=== PATIENT | female | born 1955 | race African-American/Black ===

== ENCOUNTER 2019-12-28 14:33 | Inpatient (IN) | payer MEDICAID ==
[2019-12-28] MEDS ORDERED: DEXTROSE 50%-WATER 25 GM/50 ML DISP.SYRIN IV ONE (14:40)
--- NOTE | 2019-12-28 14:59 | ER Document Report ---
ED General - General Chief Complaint: Low Blood Sugar Stated Complaint: ABNORMAL LABS Time Seen by Provider: 12/28/19 14:54 Notes: 64 year old female presents to the ED complaining of difficulty talking. Patient states she thinks it may be started around 1230 today but she is not certain. Denies any other symptoms, denies chest pain, shortness of breath, difficulty breathing, fevers, chills, weakness, difficulty walking or disorientation. When EMS picked her up she had a blood sugar 42, they did give her dextrose by mouth, blood sugar on arrival was 56. EMS states she has improved since they picked her up. No history of stroke. TRAVEL OUTSIDE OF THE [place] IN LAST 30 DAYS: No - Related Data Allergies/Adverse Reactions: No Known Allergies Allergy (Verified 12/28/19 14:58) Past Medical History - General Information source: Patient, Emergency Med Personnel - Social History Smoking Status: Current Every Day Smoker Chew tobacco use (# tins/day): No Frequency of alcohol use: Social Drug Abuse: None Family History: denies: CAD, CVA - Past Medical History Cardiac Medical History: Reports: Hx Hypercholesterolemia, Hx Hypertension Denies: Hx Coronary Artery Disease, Hx Heart Attack Pulmonary Medical History: Denies: Hx Asthma, Hx Bronchitis, Hx COPD, Hx Pneumonia Neurological Medical History: Denies: Hx Cerebrovascular Accident, Hx Seizures GI Medical History: Reports: Hx Cirrhosis - ETOH ABUSE Musculoskeletal Medical History: Denies Hx Arthritis, Denies Hx Musculoskeletal Trauma Psychiatric Medical History: Denies: Hx Depression Past Surgical History: Denies: Hx Hysterectomy - Immunizations Hx Diphtheria, Pertussis, Tetanus Vaccination: No Review of Systems - Review of Systems Constitutional: No symptoms reported Cardiovascular: No symptoms reported. denies: Chest pain, Syncope, Dizziness Respiratory: No symptoms reported. denies: Cough, Hurts to breathe, Short of breath Neurological/Psychological: See HPI, Speech impairment. denies: Weakness, Gait changes, Loss of power -: Yes All other systems reviewed and negative Physical Exam - Vital signs Vitals: Pulse Resp BP Pulse Ox 64 16 113/86 H 96 12/28/19 14:33 12/28/19 14:33 12/28/19 14:33 12/28/19 14:33 - Notes Notes: GENERAL: Alert, interacts well. No acute distress. HEAD: Normocephalic, atraumatic EYES: Pupils equal, round and reactive to light, extraocular movements intact. ENT: Oral mucosa moist, tongue midline. NECK: Full range of motion, supple, trachea midline. LUNGS: Clear to auscultation bilaterally, no wheezes, rales or rhonchi, no res piratory distress. HEART: Regular rate and rhythm, no murmurs, gallops, rubs. ABDOMEN: Soft, nontender, nondistended, bowel sounds present in all 4 quadrants. EXTREMITIES: Moves all 4 extremities spontaneously, no edema, radial and dorsalis pedis pulses 2/4 bilaterally. No cyanosis. 5 out of 5 muscle strength in all 4 extremities NEUROLOGICAL: Alert and oriented x3, normal speech, cranial nerves II through XII grossly intact, biceps and patellar DTRs 2+ bilaterally. PSYCH: Normal mood, normal affect. SKIN: Warm, Dry, normal turgor, no rashes or lesions noted. Course - Re-evaluation Re-evalutation: 12/28/19 19:58 Patient was hypothermic when she came in, temp Emerson was inserted, jeffrey hugger was started, NH was 0, CT scan of the head was negative for any acute process, blood work shows normal white blood cell count without shift, there is an anion gap acidosis that is likely coming from a lactic acidosis, her pH was quite acidotic at 7.1, potassium somewhat elevated at 5.4, CO2 low at 9, and anion gap elevated at 27, BUN and creatinine both slightly elevated at 26 and 1.49, glucose was initially 56, given an amp of D50 through the IV, glucose has risen to 312 and then to 62, patient is being fed, lactic acid markedly elevated at 13.1, repeated several hours later and it has improved to 6.8, LFTs normal, car diac enzymes negative, urinalysis does not show any signs of infection nor does chest x-ray. EKG does not show STEMI. Patient was covered with cefepime for possible sepsis. Patient's temperature is now actually 100.5. Bear hugger will be removed. Patient is still neurologically intact, denies any abdominal pain or vomiting. No indication for CT scan at this time. Patient was initially discussed with Dr. Victoria who wanted to wait on the acetaminophen and salicylates to result, now these have resulted and they are negative, discussed with Dr. Pang who accepts the patient to the [facility]. - Vital Signs Vital signs: Temp Pulse Resp BP Pulse Ox 91.3 F L 64 16 150/82 H 99 12/28/19 15:00 12/28/19 14:33 12/28/19 18:46 12/28/19 18:45 12/28/19 18:46 - Laboratory Result Diagrams: 12/28/19 14:40 12/28/19 16:08 Laboratory results interpreted by me: 12/28/19 12/28/19 12/28/19 14:35 14:40 14:40 MCHC 31.9 L RDW 15.1 H Lymph % (Auto) 11.8 L Seg Neutrophils % 81.6 H VBG pH VBG HCO3 Potassium Carbon Dioxide Anion Gap BUN Creatinine Est GFR ( Amer) Est GFR (MDRD) Non-Af Glucose POC Glucose 56 L Lactic Acid 13.1 H AST Total Protein Albumin Urine Glucose (UA) Urine Ketones Urine Blood Salicylates Acetaminophen 12/28/19 12/28/19 12/28/19 15:05 15:22 16:08 MCHC RDW Lymph % (Auto) Seg Neutrophils % VBG pH VBG HCO3 Potassium 5.4 H Carbon Dioxide 9 L* Anion Gap 27 H BUN 26 H Creatinine 1.49 H Est GFR ( Amer) 43 L Est GFR (MDRD) Non-Af 35 L Glucose 262 H POC Glucose 312 H Lactic Acid AST 68 H Total Protein 9.0 H Albumin 5.2 H Urine Glucose (UA) 50 H Urine Ketones TRACE H Urine Blood MODERATE H Salicylates Acetaminophen 12/28/19 12/28/19 12/28/19 16:08 17:00 17:43 MCHC RDW Lymph % (Auto) Seg Neutrophils % VBG pH 7.11 L* VBG HCO3 13.0 L Potassium Carbon Dioxide Anion Gap BUN Creatinine Est GFR ( Amer) Est GFR (MDRD) Non-Af Glucose POC Glucose Lactic Acid 6.8 H AST Total Protein Albumin Urine Glucose (UA) Urine Ketones Urine Blood Salicylates < 1.0 L Acetaminophen < 10 L - EKG Interpretation by Me Additional EKG results interpreted by me: 12/28/19 16:09 EKG shows sinus rhythm at a rate of 83, first-degree AV block, normal axis, prolonged QT interval, no ST segment elevations or depressions, irregular baseline, no T wave inversions per my interpretation. Critical Care Note - Critical Care Note Total time excluding time spent on procedures (mins): 55 Discharge - Discharge Clinical Impression: Lactic acid acidosis, High anion gap metabolic acidosis Sepsis Qualifiers: Sepsis type: sepsis due to unspecified organism Sepsis acute organ dysfunction status: with acute organ dysfunction Severe sepsis acute organ dysfunction type: acute renal failure Acute renal failure type: unspecified Severe sepsis shock status: without septic shock Qualified Code(s): A41.9 - Sepsis, unspecified org anism; R65.20 - Severe sepsis without septic shock; N17.9 - Acute kidney failure, unspecified Condition: Stable Disposition: HOME, SELF-CARE Admitting Provider: Poly (Hospitalist) Unit Admitted: [facility]
[2019-12-28 15:09] LABS: ABSOLUTE LYMPHOCYTES (AUTO) 1.1 10^3/uL (0.5-4.7); ABSOLUTE MONOCYTES (AUTO) 0.6 10^3/uL (0.1-1.4); ABSOLUTE NEUT (AUTO) 7.9 10^3/uL (1.7-8.2); BASOPHILS % (AUTO) 0.5 % (0-2); EOSINOPHILS % (AUTO) 0.1 % (0-6); HEMATOCRIT 39.3 % (36.0-47.0); HEMOGLOBIN 12.5 g/dL (12.0-15.5); LYMPHOCYTES % (AUTO) 11.8 % (13-45); MEAN CORPUSCULAR HEMOGLOBIN 30.9 pg (27.0-33.4); MEAN CORPUSCULAR HGB CONC 31.9 g/dL (32.0-36.0); MEAN CORPUSCULAR VOLUME 97 fl (80-97); PLATELET COUNT 272 10^3/uL (150-450); RED BLOOD COUNT 4.05 10^6/uL (3.72-5.28); RED CELL DISTRIBUTION WIDTH 15.1 % (11.5-14.0); SEGMENTED NEUTROPHILS % (AUTO) 81.6 % (42-78); TOTAL CELLS COUNTED % (AUTO) 100 %; WHITE BLOOD COUNT 9.7 10^3/uL (4.0-10.5)
[2019-12-28 15:23] LABS: APPEARANCE,URINE CLEAR; BILIRUBIN,URINE NEGATIVE (NEGATIVE); COLOR,URINE YELLOW; GLUCOSE, URINE 50 mg/dL (NEGATIVE); KETONES,URINE TRACE mg/dL (NEGATIVE); PROTEIN,URINE NEGATIVE (NEGATIVE); URINE SPECIFIC GRAVITY 1.006; UROBILINOGEN,URINE NEGATIVE mg/dL (<2.0)
--- NOTE | 2019-12-28 15:49 | RADIOLOGY REPORT (SQ) ---
EXAM DESCRIPTION: CHEST SINGLE VIEW IMAGES COMPLETED DATE/TIME: 12/28/2019 3:39 pm REASON FOR STUDY: difficulty talking COMPARISON: 12/31/2015 EXAM PARAMETERS: NUMBER OF VIEWS: One view. TECHNIQUE: Single frontal radiographic view of the chest acquired. RADIATION DOSE: NA LIMITATIONS: None. FINDINGS: LUNGS AND PLEURA: No opacities, masses or pneumothorax. No pleural effusion. Stable calci fied right apical granuloma. Unchanged bilateral mid lung scarring. MEDIASTINUM AND HILAR STRUCTURES: Calcified hilar and mediastinal nodes, stable. HEART AND VASCULAR STRUCTURES: Heart normal in size. Vascular calcifications. BONES: No acute findings. HARDWARE: None in the chest. OTHER: No other significant finding. IMPRESSION: No evidence of acute cardiopulmonary process. TECHNICAL DOCUMENTATION: JOB ID: [id number] 2010 [employer]- All Rights Reserved Reading location - IP/workstation name: [email or web address]
--- NOTE | 2019-12-28 16:00 | RADIOLOGY REPORT (SQ) ---
EXAM DESCRIPTION: CT HEAD WITHOUT IMAGES COMPLETED DATE/TIME: 12/28/2019 3:44 pm REASON FOR STUDY: difficulty talking COMPARISON: 04/20/2010 TECHNIQUE: Axial images acquired through the brain without intravenous contrast. Images reviewed wi th bone, brain and subdural windows. Additional sagittal and coronal reconstructions were generated. Images stored on PACS. All CT scanners at this facility use dose modulation, iterative reconstruction, and/or weight based d osing when appropriate to reduce radiation dose to as low as reasonably achievable (ALARA). [facility]: Dose Right [facility]: CareDose [facility]: Dose Right [facility]: Teradose 4D [facility]: [employer] RADIATION DOSE: CT Rad equipment meets quality standard of care and radiation dose reduction techniq ues were employed. CTDIvol: 53.2 mGy. DLP: 1097 mGy-cm. mGy. LIMITATIONS: None. FINDINGS: VENTRICLES: Age-appropriate. CEREBRUM: No masses. No hemorrhage. No midline shift. Mild areas of low density in the white matte r most likely due to chronic micro-vascular ischemic change. No evidence for acute large vascular te rritory infarction. Bilateral basal ganglia mineralization. CEREBELLUM: No masses. No hemorrhage. No alteration of density. No evidence for acute infarction. EXTRAAXIAL SPACES: Mild age-related involutional change. No fluid collections. No masses. ORBITS AND GLOBE: No intra- or extraconal masses. Normal contour of globe without masses. CALVARIUM: No fracture. PARANASAL SINUSES: No fluid or mucosal thickening. SOFT TISSUES: No mass or hematoma. OTHER: No other significant finding. IMPRESSION: No evidence of large vascular territory infarct or intracranial hemorrhage. Mild chronic changes of atrophy and microvascular ischemia. EVIDENCE OF ACUTE STROKE: NO. Pertinent positive or negative findings of the imaging study reported as a CRITICAL EXAM to Dr. Nadia tanner at15:48 on 12/28/2019. Category of Critical Exam: Negative code stroke TECHNICAL DOCUMENTATION: JOB ID: [id number] Quality ID # [id number]: Final reports with documentation of one or more dose reduction techniques (e.g., Au tomated exposure control, adjustment of the mA and/or kV according to patient size, use of iterative reconstruction technique) 2010 [email or web address]- All Rights Reserved Reading location - IP/workstation name: [email or web address]
[2019-12-28 16:29] LABS: PARTIAL THROMBOPLASTIN TIME 25.4 SEC (23.5-35.8)
[2019-12-28 16:31] LABS: INTERNATIONAL RATION (INR) 1.15; PROTHROMBIN TIME 14.8 SEC (11.4-15.4)
[2019-12-28 16:51] LABS: ALBUMIN 5.2 g/dL (3.5-5.0); ALKALINE PHOSPHATASE 115 U/L (38-126); ASPARTATE AMINO TRANSFERASE 68 U/L (14-36); BILIRUBIN,DIRECT 0.3 mg/dL (0.0-0.4); BILIRUBIN,TOTAL 0.5 mg/dL (0.2-1.3); BLOOD UREA NITROGEN 26 mg/dL (7-20); CALCIUM 9.4 mg/dL (8.4-10.2); CREATINE KINASE 106 U/L (30-135); GLUCOSE 262 mg/dL (75-110); POTASSIUM 5.4 mmol/L (3.6-5.0)
[2019-12-28 17:01] LABS: CHLORIDE 107 mmol/L (98-107)
[2019-12-28 17:02] LABS: ANION GAP 27 (5-19)
[2019-12-28 17:03] LABS: CREATINE KINASE MB 2.93 ng/mL (<4.55)
[2019-12-28 17:08] LABS: CARBON DIOXIDE 9 mmol/L (22-30); TROPONIN I < 0.012 ng/mL
[2019-12-28 17:15] LABS: VENOUS BLOOD BASE EXCESS -15.9 mmol/L; VENOUS BLOOD PCO2 41.5 mmHg (35-63)
[2019-12-28] MEDS ORDERED: RINGERS SOLUTION,LACTATED 1,000 ML IV ONE ×2 (17:24→18:07)
[2019-12-28 17:25] LABS: VENOUS BLOOD PH 7.11 (7.30-7.42)
[2019-12-28] MEDS ORDERED: CEFEPIME 2 GM/D5W RTU 2 GM/50 ML RTUPB IV ONE (17:26)
[2019-12-28 18:09] LABS: ACETAMINOPHEN < 10 ug/mL (10-30); SALICYLATE < 1.0 mg/dL (2.0-20.0)
[2019-12-28] MEDS ORDERED: ACETAMINOPHEN 325 MG TABLET PO ONE (20:45)
[2019-12-28] MEDS ORDERED: GLUCAGON,HUMAN RECOMB 1 MG INJ IM PRN (20:49)
[2019-12-28] MEDS ORDERED: DEXTROSE 40% GEL 15 GM TUBE PO PRN ×2 (20:49)
[2019-12-28] MEDS ORDERED: DEXTROSE 50%-WATER 25 GM/50 ML DISP.SYRIN IV PRN ×2 (20:49)
[2019-12-28] MEDS ORDERED: ACETAMINOPHEN 325 MG TABLET PO PRN (20:53)
[2019-12-28] MEDS ORDERED: DIAZEPAM INJ 10 MG/2 ML DISP.SYRIN IV PRN (20:53)
[2019-12-28] MEDS ORDERED: CHLORPROMAZINE HCL INJ 25 MG/1 ML AMPULE IV PRN (20:53)
[2019-12-28] MEDS ORDERED: MAG HYDROX/AL HYDROX/SIMETH SUSP 30 ML UDCUP PO PRN (20:53)
[2019-12-28] MEDS ORDERED: NICOTINE 21 MG/24 HR PATCH.TD24 TD PRN (20:53)
[2019-12-28] MEDS ORDERED: MAGNESIUM HYDROXIDE SUSP 30 ML UDCUP PO PRN (20:53)
[2019-12-28] MEDS ORDERED: ONDANSETRON HCL INJ/PF 4 MG/2 ML SDV IV PRN (20:55)
[2019-12-28] MEDS ORDERED: LEVALBUTEROL HCL NEB 0.63 MG/3 ML AMPUL NEB PRN (20:55)
[2019-12-28] MEDS ORDERED: DEXTROSE 5%-WATER 1000 ML 1,000 ML with SODIUM BICARBONATE 150 MEQ IV PRN ×2 (22:00)
[2019-12-28] MEDS: HEPARIN SOD (PORCINE) 5,000 UNIT/ML 1 ML VIAL SUBCUT SCH (22:17)
[2019-12-28] MEDS: FAMOTIDINE 20 MG TABLET PO SCH (22:18)
[2019-12-28] MEDS: DIAZEPAM 5 MG TABLET PO SCH (22:18)
[2019-12-28 23:36] LABS: VENOUS BLOOD BASE EXCESS -5.6 mmol/L; VENOUS BLOOD HCO3 19.5 mmol/L (20-32); VENOUS BLOOD PCO2 36.6 mmHg (35-63); VENOUS BLOOD PH 7.35 (7.30-7.42)
[2019-12-28 23:57] LABS: ALBUMIN 3.8 g/dL (3.5-5.0); ALKALINE PHOSPHATASE 86 U/L (38-126); ASPARTATE AMINO TRANSFERASE 44 U/L (14-36); BILIRUBIN,DIRECT 0.2 mg/dL (0.0-0.4); BILIRUBIN,TOTAL 0.5 mg/dL (0.2-1.3); BLOOD UREA NITROGEN 28 mg/dL (7-20); CALCIUM 8.6 mg/dL (8.4-10.2); CHLORIDE 106 mmol/L (98-107); GLUCOSE 183 mg/dL (75-110); POTASSIUM 4.9 mmol/L (3.6-5.0); TOTAL PROTEIN 7.1 g/dL (6.3-8.2)
[2019-12-29 00:08] LABS: ANION GAP 13 (5-19)
[2019-12-29 00:11] LABS: CARBON DIOXIDE 18 mmol/L (22-30)
--- NOTE | 2019-12-29 00:15 | PDOC H&P ---
History of Present Illness Admission Date/PCP: 12/28/2019 19:54 No local PCP Patient complains of: Speech difficulty History of Present Illness: LINO MACARIO is a 64 year old female who presented the emergency room with acute difficulty with her speech. She admits that it at about noon today she suddenly began having moderate difficulty with her speech, in that the words she was saying were not what she intended to say. She denies associated or accompanying signs and symptoms. She denies prior similar episodes. She has not identified any aggravating or ameliorating factors for her speech difficulties. Upon EMS arrival they found her to have a blood sugar of 42 which corrected to 56 with oral glucose and then to greater than 300 with IV D50. In the emergency room she was noted to be hypothermic with an initial core temperature of 90.8, acidotic with initial pH of 7.11 (venous), lactic acid was elevated at 13.1, CO2 was 9 and her anion gap was 27. Her temperature corrected rapidly to 100.4 F and her lactic acid improved to 6.8 with IV fluid therapy. Cefepime was given empirically by the ER physician. She was subsequently admitted to the hospital for further evaluation and treatment. Past Medical History Cardiac Medical History: Reports: Hyperlipidema, Hypertension Denies: Coronary Artery Disease, Myocardial Infarction Pulmonary Medical History: Denies: Asthma, Bronchitis, Chronic Obstructive Pulmonary Disease (COPD), Pneumonia EENT Medical History: Denies: Cataracts, Ears - Hearing aids Neurological Medical History: Denies: Hemorrhagic CVA, Ischemic CVA, Seizures Endocrine Medical History: Denies: Diabetes Mellitus Type 1, Diabetes Mellitus Type 2, Hyperthyroidism, Hypothyroidism, Obesity Renal/ Medical History: Denies: Chronic Kidney Disease, Nephrolithiasis Malignancy Medical History: Reports: None GI Medical History: Reports: Cirrhosis - Alcoholic cirrhosis Denies: Crohn's Disease, Hepatitis, Ulcerative Colitis Musculoskeltal Medical History: Reports: Gout Denies: Arthritis Skin Medical History: Denies: Eczema, Psoriasis Psychiatric Medical History: Reports: Alcohol Dependency, Tobacco Dependency Denies: Depression, Substance Abuse Traumatic Medical History: Reports: None Hematology: Denies: Anemia, Bleeding Tendencies Infectious Medical History: Reports: None Past Surgical History Past Surgical History: Reports: None Social History Information Source: Patient Lives with: Friend Smoking Status: Current Every Day Smoker Cigarettes Packs Per Day: 0.2 Electronic Cigarette use?: No Frequency of Alcohol Use: Heavy Amount of Alcoholic Beverages Per Day: 3-4 shots of hard liquor Last Alcohol Use: 12/28/19 Hx Recreational Drug Use: No Drugs: None Hx Prescription Drug Abuse: No - Advance Directive Resuscitation Status: Full Code Surrogate healthcare decision maker:: Abhilash Macario Family History Family History: DM, Hypertension, Malignancy. denies: CAD, CVA Parental Family History Reviewed: Yes Children Family History Reviewed: No Sibling(s) Family History Reviewed.: Yes Medication/Allergy Home Medications: Ascorbic Acid [Vitamin C] 500 mg PO DAILY 05/11/13 Ca Cmb No.1/Vit D3/B-6/FA/B12 [Vitamin D3 1,000 Unit Tablet] 1 tab PO DAILY 05/11/13 Vitamin E [Natural Vitamin E] 400 unit PO DAILY 05/11/13 Thiamine Mononitrate [Vitamin B-1] 1 tab PO DAILY 04/12/15 Atenolol [Tenormin] 50 mg PO BID #120 tablet 01/06/16 Allergies/Adverse Reactions: No Known Allergies Allergy (Verified 12/28/19 14:58) Review of Systems Constitutional: ABSENT: chills, fever(s) Eyes: ABSENT: visual disturbances, other - Eye pain Ears: ABSENT: hearing changes, other - Ear pain Nose, Mouth, and Throat: ABSENT: headache(s), sore throat Cardiovascular: ABSENT: chest pain, palpitations Respiratory: ABSENT: cough, dyspnea Gastrointestinal: ABSENT: abdominal pain, constipation, diarrhea, nausea, vomiting Musculoskeletal: ABSENT: back pain, joint swelling, muscle weakness Integumentary: ABSENT: diaphoresis, pruritus, rash Neurological: PRESENT: as per HPI, abnormal speech. ABSENT: confusion, convulsions, focal weakness, memory loss, syncope Psychiatric: ABSENT: anxiety, depression Endocrine: ABSENT: cold intolerance, heat intolerance Hematologic/Lymphatic: ABSENT: easy bleeding, easy bruising Allergic/Immunologic: ABSENT: seasonal rhinorrhea Physical Exam Vital Signs: Temp Pulse Resp BP Pulse Ox 91.3 F L 64 16 150/82 H 99 12/28/19 15:00 12/28/19 14:33 12/28/19 18:46 12/28/19 18:45 12/28/19 18:46 Intake & Output 12/26/19 12/27/19 12/28/19 23:59 23:59 23:59 Intake Total 1050 Balance 1050 Weight 61.3 kg General appearance: PRESENT: no acute distress, cooperative Head exam: PRESENT: atraumatic, normocephalic Eye exam: PRESENT: conjunctiva pink. ABSENT: conjunctival injection, scleral icterus Ear exam: PRESENT: normal external ear exam. ABSENT: bleeding, drainage Mouth exam: PRESENT: dry mucosa, neck supple Neck exam: ABSENT: thyromegaly, tracheal deviation Respiratory exam: PRESENT: clear to auscultation bill, symmetrical, unlabored Cardiovascular exam: PRESENT: RRR. ABSENT: clicks, gallop, rubs Pulses: PRESENT: normal radial pulses, normal dorsalis pedis pul Vascular exam: PRESENT: normal capillary refill. ABSENT: pallor GI/Abdominal exam: PRESENT: distended - Mild gaseous distention, normal bowel sounds, soft Rectal exam: PRESENT: deferred Extremities exam: ABSENT: joint swelling, pedal edema Musculoskeletal exam: ABSENT: deformity, dislocation Neurological exam: PRESENT: alert, oriented to person, oriented to place, oriented to time, oriented to situation, CN II-XII grossly intact. ABSENT: mo tor sensory deficit Psychiatric exam: PRESENT: appropriate affect, normal mood Skin exam: PRESENT: dry, intact, warm. ABSENT: jaundice, rash, urticaria Results Laboratory Results: 12/28/19 14:40 12/28/19 16:08 12/28/19 12/28/19 12/28/19 14:40 14:40 14:40 WBC 9.7 RBC 4.05 Hgb 12.5 Hct 39.3 MCV 97 MCH 30.9 MCHC 31.9 L RDW 15.1 H Plt Count 272 Seg Neutrophils % 81.6 H VBG pH VBG pCO2 VBG HCO3 VBG Base Excess Sodium Cancelled Potassium Cancelled Chloride Cancelled Carbon Dioxide Cancelled Anion Gap Cancelled BUN Cancelled Creatinine Cancelled Est GFR ( Amer) Cancelled Est GFR (Non-Af Amer) Cancelled Glucose Cancelled Lactic Acid 13.1 H Calcium Cancelled Total Bilirubin Cancelled AST Cancelled Alkaline Phosphatase Cancelled Total Protein Cancelled Albumin Cancelled Urine Color Urine Appearance Urine pH Ur Specific [place] Urine Protein Urine Glucose (UA) Urine Ketones Urine Blood Urine RBC (Auto) 12/28/19 12/28/19 12/28/19 15:05 16:08 16:08 WBC RBC Hgb Hct MCV MCH MCHC RDW Plt Count Seg Neutrophils % VBG pH Cancelled VBG pCO2 Cancelled VBG HCO3 Cancelled VBG Base Excess Cancelled Sodium 143.1 Potassium 5.4 H Chloride 107 Carbon Dioxide 9 L* Anion Gap 27 H BUN 26 H Creatinine 1.49 H Est GFR ( Amer) 43 L Est GFR (Non-Af Amer) Glucose 262 H Lactic Acid Calcium 9.4 Total Bilirubin 0.5 AST 68 H Alkaline Phosphatase 115 Total Protein 9.0 H Albumin 5.2 H Urine Color YELLOW Urine Appearance CLEAR Urine pH 5.0 Ur Specific [place] 1.006 Urine Protein NEGATIVE Urine Glucose (UA) 50 H Urine Ketones TRACE H Urine Blood MODERATE H Urine RBC (Auto) 1 12/28/19 12/28/19 17:00 17:43 WBC RBC Hgb Hct MCV MCH MCHC RDW Plt Count Seg Neutrophils % VBG pH 7.11 L* VBG pCO2 41.5 VBG HCO3 13.0 L VBG Base Excess -15.9 Sodium Potassium Chloride Carbon Dioxide Anion Gap BUN Creatinine Est GFR ( Amer) Est GFR (Non-Af Amer) Glucose Lactic Acid 6.8 H Calcium Total Bilirubin AST Alkaline Phosphatase Total Protein Albumin Urine Color Urine Appearance Urine pH Ur Specific [place] Urine Protein Urine Glucose (UA) Urine Ketones Urine Blood Urine RBC (Auto) 12/28/19 12/28/19 12/28/19 14:40 14:40 16:08 Creatine Kinase Cancelled 106 CK-MB (CK-2) Cancelled Troponin I Cancelled 12/28/19 16:08 Creatine Kinase CK-MB (CK-2) 2.93 Troponin I < 0.012 Impressions: Chest X-Ray 12/28/19 14:54 IMPRESSION: No evidence of acute cardiopulmonary process. Head CT 12/28/19 14:54 IMPRESSION: No evidence of large vascular territory infarct or intracranial hemorrhage. Mild chronic changes of atrophy and microvascular ischemia. EVIDENCE OF ACUTE STROKE: NO. Pertinent positive or negative findings of the imaging study reported as a CRITICAL EXAM to Dr. Bhatia at15:48 on 12/28/2019. Category of Critical Exam: Negative code stroke Assessment and Plan - Diagnosis (1) SIRS (systemic inflammatory response syndrome) Is this a current diagnosis for this admission?: Yes (2) Lactic acid acidosis Is this a current diagnosis for this admission?: Yes (3) Hypothermia Qualifiers: Encounter type: initial encounter Qualified Code(s): T68.XXXA - Hypothermia, initial encounter Is this a current diagnosis for this admission?: Yes (4) Hypoglycemia Is this a current diagnosis for this admission?: Yes (5) Hypertension Qualifiers: Hypertension type: essential hypertension Qualified Code(s): I10 - Essential (primary) hypertension Is this a current diagnosis for this admission?: Yes (6) Hyperlipidemia Qualifiers: Hyperlipidemia type: unspecified Qualified Code(s): E78.5 - Hyperlipidemia, unspecified Is this a current diagnosis for this admission?: Yes (7) Alcoholic cirrhosis of liver without ascites Is this a current diagnosis for this admission?: Yes (8) Tobacco use disorder, severe, dependence Is this a current diagnosis for this admission?: Yes (9) Alcohol use disorder, severe, dependence Is this a current diagnosis for this admission?: Yes - Plan Summary Summary: Patient is admitted to [facility] where she will be receiving routine supportive and symptomatic cares. An MRI of her head will be obtained to evaluate for a possible stroke. She received a bicarbonate infusion over the initial 3 hours of her hospital course. She will receive high-volume IV fluids and her electrolytes will be monitored closely. Serial lactic acid studies will be obtained. Serial venous blood gases will be obtained. Patient's temperature will be monitored closely throughout her hospital course. Patient will use Valium 10 mg IV every hour as needed severe agitation/hallucinations related to alcohol withdrawal. Accu-Cheks will be obtained every 4 hours. Patient will be on a cardiac diet. CBCs, metabolic profiles and magnesium levels will be obtained as appropriate. Smoking cessation is advised and counseled briefly at the bedside. A nicotine replacement patch is available for the patient's use, if desired. - Time Time Spent with patient: 25-34 minutes Smoking Cessation Education: 3 to 10 minutes Medications reviewed and adjusted accordingly: Yes - Inpatient Certification Based on my medical assessment, after consideration of the patient's comorbidities, presenting symptoms, or acuity I expect that the services needed warrant INPATIENT care.: Yes I certify that my determination is in accordance with my understanding of Medicare's requirements for reasonable and necessary INPATIENT services [42 CFR 412.3e].: Yes Medical Necessity: Need Close Monitoring Due to Risk of Patient Decompensation, Need For IV Fluids, Need For Continuous Telemetry Monitoring, Need for Solomon rological Checks, Risk of Complication if Not Cared For in Hospital, Risk of Diagnosis Which Will Require Inpatient Eval/Care/Monitoring
[2019-12-29 02:07] LABS: VENOUS BLOOD BASE EXCESS 1.1 mmol/L; VENOUS BLOOD HCO3 26.2 mmol/L (20-32); VENOUS BLOOD PCO2 43.7 mmHg (35-63); VENOUS BLOOD PH 7.4 (7.30-7.42)
[2019-12-29] MEDS: DIAZEPAM 5 MG TABLET PO SCH ×6 (02:11→21:08)
[2019-12-29] MEDS: RINGERS SOLUTION,LACTATED 1,000 ML IV PRN ×2 (03:17→06:43)
[2019-12-29] MEDS: HEPARIN SOD (PORCINE) 5,000 UNIT/ML 1 ML VIAL SUBCUT SCH ×3 (05:03→21:08)
[2019-12-29 05:40] LABS: VENOUS BLOOD BASE EXCESS 2.5 mmol/L; VENOUS BLOOD HCO3 27.1 mmol/L (20-32); VENOUS BLOOD PCO2 41.9 mmHg (35-63); VENOUS BLOOD PH 7.43 (7.30-7.42)
[2019-12-29 06:07] LABS: CHOLESTEROL 154.08 mg/dL (0-200); TRIGLYCERIDES 114 mg/dL (<150)
[2019-12-29 06:18] LABS: DIRECT LDL 73 mg/dL (<100)
[2019-12-29 06:22] LABS: VLDL CHOLESTEROL 22.8 mg/dL (10-31)
[2019-12-29] MEDS ORDERED: MAGNESIUM SULFATE/D5W 1 GM/100 ML RTUPB IV ONE (06:45)
[2019-12-29 08:12] LABS: ABSOLUTE LYMPHOCYTES (AUTO) 1.7 10^3/uL (0.5-4.7); ABSOLUTE MONOCYTES (AUTO) 0.8 10^3/uL (0.1-1.4); ABSOLUTE NEUT (AUTO) 3.9 10^3/uL (1.7-8.2); BASOPHILS % (AUTO) 0.6 % (0-2); EOSINOPHILS % (AUTO) 0.2 % (0-6); HEMATOCRIT 30.4 % (36.0-47.0); HEMOGLOBIN 10.6 g/dL (12.0-15.5); LYMPHOCYTES % (AUTO) 26.9 % (13-45); MEAN CORPUSCULAR HEMOGLOBIN 32.7 pg (27.0-33.4); MEAN CORPUSCULAR HGB CONC 34.9 g/dL (32.0-36.0); MEAN CORPUSCULAR VOLUME 94 fl (80-97); MONOCYTES % (AUTO) 12.4 % (3-13); PLATELET COUNT 186 10^3/uL (150-450); RED BLOOD COUNT 3.25 10^6/uL (3.72-5.28); RED CELL DISTRIBUTION WIDTH 14.2 % (11.5-14.0); SEGMENTED NEUTROPHILS % (AUTO) 59.9 % (42-78); TOTAL CELLS COUNTED % (AUTO) 100 %; WHITE BLOOD COUNT 6.4 10^3/uL (4.0-10.5)
[2019-12-29 08:20] LABS: ANION GAP 8 (5-19); BLOOD UREA NITROGEN 27 mg/dL (7-20); CALCIUM 8.4 mg/dL (8.4-10.2); CARBON DIOXIDE 27 mmol/L (22-30); CHLORIDE 102 mmol/L (98-107); GLUCOSE 99 mg/dL (75-110); POTASSIUM 4.1 mmol/L (3.6-5.0)
[2019-12-29] MEDS: MAGNESIUM SULFATE/D5W 1 GM/100 ML RTUPB IV SCH ×2 (08:52→11:25)
--- NOTE | 2019-12-29 09:37 | EKG REPORT ---
SEVERITY:- ABNORMAL ECG - SINUS RHYTHM VENTRICULAR PREMATURE COMPLEX PROLONGED QT INTERVAL : Confirmed by: Rima Rosario 29-Dec-2019 09:36:27
[2019-12-29] MEDS: DOCUSATE SODIUM 100 MG CAPSULE PO SCH ×2 (09:48→17:01)
[2019-12-29] MEDS: FAMOTIDINE 20 MG TABLET PO SCH ×2 (09:48→21:08)
--- NOTE | 2019-12-29 11:32 | RADIOLOGY REPORT (SQ) ---
EXAM DESCRIPTION: MRI HEAD WITHOUT IMAGES COMPLETED DATE/TIME: 12/29/2019 10:38 am REASON FOR STUDY: Expressive aphasia COMPARISON: CT brain 12/28/2019, 04/20/2010 TECHNIQUE: Multiplanar imaging includes non-contrasted T1, T2, FLAIR, and diffusion with ADC map seq uences. Images stored on PACS. LIMITATIONS: None. FINDINGS: ANATOMY: No anomalies. Normal vascular flow voids. Pituitary fossa normal. CSF SPACES: Normal in size and contour. No hemorrhage. CEREBRUM: Diffusion-weighted images are negative for acute ischemic change. FLAIR and T2 weighted images show a moderate burden of white matter disease in the biparietal region and mid you, with spotty white matter disease elsewhere in the hemispheres. This is stable compared to 2009. POSTERIOR FOSSA: No signal alteration. No hemorrhage. No edema, masses or mass effect. Internal rafael tory canals, cerebello-pontine angles, mastoids normal. DIFFUSION IMAGING: Negative for acute or sub-acute infarction. ORBITS: No masses. Globes normal. PARANASAL SINUSES: No fluid levels. Mucosa normal. OTHER: No other significant finding. IMPRESSION: Chronic white matter disease. No acute findings EVIDENCE OF ACUTE STROKE: NO. TECHNICAL DOCUMENTATION: JOB ID: [id number] 2010 [employer]- All Rights Reserved Reading location - IP/workstation name: [email or web address]
--- NOTE | 2019-12-29 13:12 | PDOC PROGRESS REPORT ---
Subjective Progress Note for:: 12/29/19 Reason For Visit: SIRS 12/29/2019 Admitted for altered mental status, cirrhosis of the liver, alcohol abuse, mental status, lactic acid acidosis, hypothermia, hypoglycemia, hypertension. Patient is a known heavy drinker Physical Exam Vital Signs: Temp Pulse Resp BP Pulse Ox 98.1 F 75 13 141/73 H 98 12/29/19 11:21 12/29/19 11:21 12/29/19 11:21 12/29/19 11:21 12/29/19 11:21 Intake & Output 12/28/19 12/29/19 12/30/19 06:59 06:59 06:59 Intake Total 4290 1100 Output Total 3000 Balance 1290 1100 Weight 63.5 kg General appearance: PRESENT: no acute distress Respiratory exam: PRESENT: clear to auscultation bill. ABSENT: rales, rhonchi, wheezes Cardiovascular exam: PRESENT: RRR. ABSENT: diastolic murmur, rubs, systolic murmur Neurological exam: PRESENT: alert, awake, oriented to person, oriented to place, oriented to time, oriented to situation, CN II-XII grossly intact, other - No focal deficits at all, no speech deficit. ABSENT: motor sensory deficit Psychiatric exam: PRESENT: appropriate affect, normal mood. ABSENT: homicidal ideation, suicidal ideation Results Laboratory Results: 12/29/19 05:27 12/29/19 05:27 12/28/19 12/28/19 12/28/19 14:40 14:40 14:40 WBC 9.7 RBC 4.05 Hgb 12.5 Hct 39.3 MCV 97 MCH 30.9 MCHC 31.9 L RDW 15.1 H Plt Count 272 Seg Neutrophils % 81.6 H VBG pH VBG pCO2 VBG HCO3 VBG Base Excess Sodium Cancelled Potassium Cancelled Chloride Cancelled Carbon Dioxide Cancelled Anion Gap Cancelled BUN Cancelled Creatinine Cancelled Est GFR ( Amer) Cancelled Est GFR (Non-Af Amer) Cancelled Glucose Cancelled Lactic Acid 13.1 H Calcium Cancelled Magnesium Total Bilirubin Cancelled AST Cancelled Alkaline Phosphatase Cancelled Total Protein Cancelled Albumin Cancelled Triglycerides Cholesterol LDL Cholesterol Direct VLDL Cholesterol HDL Cholesterol TSH Free T3 pg/mL Urine Color Urine Appearance Urine pH Ur Specific [place] Urine Protein Urine Glucose (UA) Urine Ketones Urine Blood Urine RBC (Auto) 12/28/19 12/28/19 12/28/19 15:05 16:08 16:08 WBC RBC Hgb Hct MCV MCH MCHC RDW Plt Count Seg Neutrophils % VBG pH Cancelled VBG pCO2 Cancelled VBG HCO3 Cancelled VBG Base Excess Cancelled Sodium 143.1 Potassium 5.4 H Chloride 107 Carbon Dioxide 9 L* Anion Gap 27 H BUN 26 H Creatinine 1.49 H Est GFR ( Amer) 43 L Est GFR (Non-Af Amer) Glucose 262 H Lactic Acid Calcium 9.4 Magnesium Total Bilirubin 0.5 AST 68 H Alkaline Phosphatase 115 Total Protein 9.0 H Albumin 5.2 H Triglycerides Cholesterol LDL Cholesterol Direct VLDL Cholesterol HDL Cholesterol TSH Free T3 pg/mL Urine Color YELLOW Urine Appearance CLEAR Urine pH 5.0 Ur Specific [place] 1.006 Urine Protein NEGATIVE Urine Glucose (UA) 50 H Urine Ketones TRACE H Urine Blood MODERATE H Urine RBC (Auto) 1 12/28/19 12/28/19 12/28/19 17:00 17:43 20:45 WBC RBC Hgb Hct MCV MCH MCHC RDW Plt Count Seg Neutrophils % VBG pH 7.11 L* VBG pCO2 41.5 VBG HCO3 13.0 L VBG Base Excess -15.9 Sodium Potassium Chloride Carbon Dioxide Anion Gap BUN Creatinine Est GFR ( Amer) Est GFR (Non-Af Amer) Glucose Lactic Acid 6.8 H 5.8 H Calcium Magnesium Total Bilirubin AST Alkaline Phosphatase Total Protein Albumin Triglycerides Cholesterol LDL Cholesterol Direct VLDL Cholesterol HDL Cholesterol TSH Free T3 pg/mL Urine Color Urine Appearance Urine pH Ur Specific [place] Urine Protein Urine Glucose (UA) Urine Ketones Urine Blood Urine RBC (Auto) 12/28/19 12/28/19 12/28/19 23:28 23:28 23:28 WBC RBC Hgb Hct MCV MCH MCHC RDW Plt Count Seg Neutrophils % VBG pH VBG pCO2 VBG HCO3 VBG Base Excess Sodium 136.8 L Potassium 4.9 Chloride 106 Carbon Dioxide 18 L Anion Gap 13 BUN 28 H Creatinine 1.18 Est GFR ( Amer) 56 L Est GFR (Non-Af Amer) Glucose 183 H Lactic Acid 3.9 H Calcium 8.6 Magnesium Total Bilirubin 0.5 AST 44 H Alkaline Phosphatase 86 Total Protein 7.1 Albumin 3.8 Triglycerides Cholesterol LDL Cholesterol Direct VLDL Cholesterol HDL Cholesterol TSH Free T3 pg/mL 2.42 L Urine Color Urine Appearance Urine pH Ur Specific [place] Urine Protein Urine Glucose (UA) Urine Ketones Urine Blood Urine RBC (Auto) 12/28/19 12/29/19 12/29/19 23:28 02:00 02:00 WBC RBC Hgb Hct MCV MCH MCHC RDW Plt Count Seg Neutrophils % VBG pH 7.35 7.40 VBG pCO2 36.6 43.7 VBG HCO3 19.5 L 26.2 VBG Base Excess -5.6 1.1 Sodium Potassium Chloride Carbon Dioxide Anion Gap BUN Creatinine Est GFR ( Amer) Est GFR (Non-Af Amer) Glucose Lactic Acid 2.7 H Calcium Magnesium Total Bilirubin AST Alkaline Phosphatase Total Protein Albumin Triglycerides Cholesterol LDL Cholesterol Direct VLDL Cholesterol HDL Cholesterol TSH Free T3 pg/mL Urine Color Urine Appearance Urine pH Ur Specific [place] Urine Protein Urine Glucose (UA) Urine Ketones Urine Blood Urine RBC (Auto) 12/29/19 12/29/19 12/29/19 05:27 05:27 05:27 WBC RBC Hgb Hct MCV MCH MCHC RDW Plt Count Seg Neutrophils % VBG pH VBG pCO2 VBG HCO3 VBG Base Excess Sodium Potassium Chloride Carbon Dioxide Anion Gap BUN Creatinine Est GFR ( Amer) Est GFR (Non-Af Amer) Glucose Lactic Acid 2.4 H Calcium Magnesium 1.2 L* Total Bilirubin AST Alkaline Phosphatase Total Protein Albumin Triglycerides 114 Cholesterol 154.08 LDL Cholesterol Direct 73 VLDL Cholesterol 22.8 HDL Cholesterol 69 TSH 0.64 Free T3 pg/mL Urine Color Urine Appearance Urine pH Ur Specific [place] Urine Protein Urine Glucose (UA) Urine Ketones Urine Blood Urine RBC (Auto) 12/29/19 12/29/19 12/29/19 05:27 05:27 05:27 WBC 6.4 RBC 3.25 L Hgb 10.6 L Hct 30.4 L MCV 94 MCH 32.7 MCHC 34.9 RDW 14.2 H Plt Count 186 Seg Neutrophils % 59.9 VBG pH 7.43 H VBG pCO2 41.9 VBG HCO3 27.1 VBG Base Excess 2.5 Sodium 137.0 Potassium 4.1 Chloride 102 Carbon Dioxide 27 Anion Gap 8 BUN 27 H Creatinine 1.02 Est GFR ( Amer) > 60 Est GFR (Non-Af Amer) Glucose 99 Lactic Acid Calcium 8.4 Magnesium Total Bilirubin AST Alkaline Phosphatase Total Protein Albumin Triglycerides Cholesterol LDL Cholesterol Direct VLDL Cholesterol HDL Cholesterol TSH Free T3 pg/mL Urine Color Urine Appearance Urine pH Ur Specific [place] Urine Protein Urine Glucose (UA) Urine Ketones Urine Blood Urine RBC (Auto) 12/28/19 12/28/19 12/28/19 14:40 14:40 16:08 Creatine Kinase Cancelled 106 CK-MB (CK-2) Cancelled Troponin I Cancelled 12/28/19 16:08 Creatine Kinase CK-MB (CK-2) 2.93 Troponin I < 0.012 Impressions: Chest X-Ray 12/28/19 14:54 IMPRESSION: No evidence of acute cardiopulmonary process. Head CT 12/28/19 14:54 IMPRESSION: No evidence of large vascular territory infarct or intracranial hemorrhage. Mild chronic changes of atrophy and microvascular ischemia. EVIDENCE OF ACUTE STROKE: NO. Pertinent positive or negative findings of the imaging study reported as a CRITICAL EXAM to Dr. Bhatia at15:48 on 12/28/2019. Category of Critical Exam: Negative code stroke Head MRI 12/29/19 00:00 IMPRESSION: Chronic white matter disease. No acute findings EVIDENCE OF ACUTE STROKE: NO. Assessment and Plan - Diagnosis (1) Alcohol use disorder, severe, dependence Is this a current diagnosis for this admission?: Yes (2) Alcoholic cirrhosis of liver without ascites Is this a current diagnosis for this admission?: Yes (3) High anion gap metabolic acidosis Is this a current diagnosis for this admission?: Yes (4) Hypertension Qualifiers: Hypertension type: essential hypertension Qualified Code(s): I10 - Essential (primary) hypertension Is this a current diagnosis for this admission?: Yes (5) Hypoglycemia Is this a current diagnosis for this admission?: Yes (6) Hypothermia Qualifiers: Encounter type: initial encounter Qualified Code(s): T68.XXXA - Hypothermia, initial encounter Is this a current diagnosis for this admission?: Yes (7) Lactic acid acidosis Is this a current diagnosis for this admission?: Yes - Plan Summary Summary: Patient is admitted to [facility] where she will be receiving routine supportive and s ymptomatic cares. An MRI of her head will be obtained to evaluate for a possible stroke. She received a bicarbonate infusion over the initial 3 hours of her hospital course. She will receive high-volume IV fluids and her electrolytes will be monitored closely. Serial lactic acid studies will be obtained. Serial venous blood gases will be obtained. Patient's temperature will be monitored closely throughout her hospital course. Patient will use Valium 10 mg IV every hour as needed severe agitation/hallucinations related to alcohol withdrawal. Accu-Cheks will be obtained every 4 hours. Patient will be on a cardiac diet. CBCs, metabolic profiles and magnesium levels will be obtained as appropriate. Smoking cessation is advised and counseled briefly at the bedside. A nicotine replacement patch is available for the patient's use, if desired. 12/29/2019 Patient was admitted last night through the emergency room for possible expressive aphasia, possible sepsis, abnormal labs, and significant alcohol abuse. Morning upon further questioning the patient tells me that yesterday prior to all this happening she had had several drinks of alcohol, and according to someone who was there she may have "passed out" for some time prior to coming to the emergency room. Patient states she had not had anything to drink for several weeks and was trying to stop drinking but yesterday once again had multiple alcoholic beverages. Patient has been drinking alcohol for many many years.. Was some thought by the hospitalist that the patient was hypothermic and hypotensive from laying exposed uncovered and possibly post inebriation, higher to coming to the ER. Confirms that that may have been a possibility She denies any recent fever chills or respiratory illness This morning her temperature is 98 her pulse is 68 her blood pressure is 141/64 and her oxygen is 98% on room air Morning her pH is 7.43 sodium 136, BUN of 28 creatinine 1.18. Lactic acid levels 2.4 on admission it was reportedly 13.1 but quickly went down to 6.8 and then down to 2.7, with essentially nothing more done than IV fluids Patient's magnesium level is low at 1.2 and she will be given IV riders MRI of the brain shows no acute ischemic changes or CVA Patient is neurologically intact with no focal deficits no expressive or receptive aphasia. Continue the IV cefepime until cultures are back until patient has been stabilized. This IV antibiotic may be discontinued within the next 24 hours Follow-up labs. I do not feel like this is a case of sepsis or CVA. Unfortunately a blood alcohol was not done in ED I have explained all this to the patient and she seemed comfortable and satisfied, is in no distress - Time Time Spent with patient: 35 or more minutes
[2019-12-29] MEDS ORDERED: MAGNESIUM SULFATE 4 GM/100 ML RTUPB IV ONE (14:00)
[2019-12-30] MEDS: DIAZEPAM 5 MG TABLET PO SCH ×5 (01:42→23:21)
[2019-12-30] MEDS: HEPARIN SOD (PORCINE) 5,000 UNIT/ML 1 ML VIAL SUBCUT SCH ×3 (05:28→21:27)
[2019-12-30 07:53] LABS: ANION GAP 8 (5-19); BLOOD UREA NITROGEN 25 mg/dL (7-20); CALCIUM 8.8 mg/dL (8.4-10.2); CARBON DIOXIDE 26 mmol/L (22-30); CHLORIDE 101 mmol/L (98-107); GLUCOSE 120 mg/dL (75-110); POTASSIUM 4.8 mmol/L (3.6-5.0)
[2019-12-30] MEDS: FAMOTIDINE 20 MG TABLET PO SCH ×2 (09:24→21:28)
[2019-12-30] MEDS: FOLIC ACID 1 MG TABLET PO SCH (09:24)
[2019-12-30] MEDS: DOCUSATE SODIUM 100 MG CAPSULE PO SCH ×2 (09:24→17:11)
[2019-12-30] MEDS: THIAMINE HCL 100 MG TABLET PO SCH (09:25)
[2019-12-30] MEDS: NORMAL SALINE 1000 ML 1,000 ML IV PRN ×3 (09:29→23:17)
[2019-12-30] MEDS ORDERED: DIAZEPAM 2 MG TABLET PO PRN (13:16)
[2019-12-30] MEDS ORDERED: HYDRALAZINE HCL INJ/PF 20 MG/1 ML SDV IV PRN (13:19)
--- NOTE | 2019-12-30 13:24 | PDOC PROGRESS REPORT ---
Subjective Progress Note for:: 12/30/19 Subjective:: The patient is a 64-year-old female with a past medical history of hypertension, hyperlipidemia, alcoholic cirrhosis, gout, alcohol and tobacco dependency with continuous use who presented to the emergency department with complaint of expressive aphasia; found to have SIRS with hypothermia; ultimately determined to be caused to environmental exposure following alcohol intoxication. Patient was seen on morning rounds. She was found resting in bed, comfortably, on room air. She denies all complaints at this time. She specifically denies fever, chills, chest pain, palpitations, dyspnea, abdominal pain, nausea vomiting and diarrhea. She reports poor appetite, however, states that this is likely due to hospital food. She has no other questions or concerns at this time. She has noted to have a flat affect with minimal eye contact. No questions or concerns per nursing. Reason For Visit: SIRS Physical Exam Vital Signs: Temp Pulse Resp BP Pulse Ox 97.9 F 75 20 156/92 H 95 12/30/19 11:55 12/30/19 11:55 12/30/19 11:55 12/30/19 11:55 12/30/19 11:55 Intake & Output 12/29/19 12/30/19 12/31/19 06:59 06:59 06:59 Intake Total 4290 2892 Output Total 3000 2100 Balance 1290 792 Weight 63.5 kg 63 kg General appearance: PRESENT: no acute distress, well-developed, well-nourished Head exam: PRESENT: atraumatic, normocephalic Eye exam: PRESENT: conjunctiva pink, EOMI, PERRLA. ABSENT: scleral icterus Mouth exam: PRESENT: moist, tongue midline Respiratory exam: PRESENT: clear to auscultation bill, symmetrical, unlabored. ABSENT: rales, rhonchi, wheezes Cardiovascular exam: PRESENT: RRR, +S1, +S2. ABSENT: diastolic murmur, rubs, systolic murmur Pulses: PRESENT: normal dorsalis pedis pul Vascular exam: PRESENT: normal capillary refill GI/Abdominal exam: PRESENT: normal bowel sounds, soft. ABSENT: distended, guarding, mass, organolmegaly, rebound, tenderness Rectal exam: PRESENT: deferred Extremities exam: PRESENT: full ROM. ABSENT: calf tenderness, clubbing, pedal edema Musculoskeletal exam: PRESENT: ambulatory Neurological exam: PRESENT: alert, awake, oriented to person, oriented to place, oriented to time, oriented to situation, CN II-XII grossly intact. ABSENT: motor sensory deficit Psychiatric exam: PRESENT: flat affect, normal mood. ABSENT: homicidal i deation, suicidal ideation Skin exam: PRESENT: dry, intact, warm. ABSENT: cyanosis, rash Results Laboratory Results: 12/29/19 05:27 12/30/19 04:01 12/29/19 12/30/19 12/30/19 15:00 04:01 04:01 Sodium 134.8 L Potassium 4.8 Chloride 101 Carbon Dioxide 26 Anion Gap 8 BUN 25 H Creatinine 1.39 H Est GFR ( Amer) 46 L Glucose 120 H Calcium 8.8 Magnesium 2.5 H D 2.7 H 12/28/19 12/28/19 12/28/19 14:40 14:40 16:08 Creatine Kinase Cancelled 106 CK-MB (CK-2) Cancelled Troponin I Cancelled 12/28/19 16:08 Creatine Kinase CK-MB (CK-2) 2.93 Troponin I < 0.012 Impressions: Chest X-Ray 12/28/19 14:54 IMPRESSION: No evidence of acute cardiopulmonary process. Head CT 12/28/19 14:54 IMPRESSION: No evidence of large vascular territory infarct or intracranial hemorrhage. Mild chronic changes of atrophy and microvascular ischemia. EVIDENCE OF ACUTE STROKE: NO. Pertinent positive or negative findings of the imaging study reported as a CRITICAL EXAM to Dr. Bhatia at15:48 on 12/28/2019. Category of Critical Exam: Negative code stroke Head MRI 12/29/19 00:00 IMPRESSION: Chronic white matter disease. No acute findings EVIDENCE OF ACUTE STROKE: NO. Assessment and Plan - Diagnosis (1) MARIAH (acute kidney injury) Is this a current diagnosis for this admission?: Yes Plan: Likely multifactorial secondary to alcohol intoxication, antihypertensives, hypoglycemia/hypothermia. Cr minimally elevated to 1.39. Baseline 1.02 We will avoid nephrotoxic medications as able. Continue gentle IV fluids. Encourage p.o. fluid intake. Follow-up chemistry. (2) Alcohol use disorder, severe, dependence Is this a current diagnosis for this admission?: Yes Plan: The patient is admitted to [facility] on continuous cardiac telemetry. She is provided scheduled Valium; will decrease frequency from every 4 to every 6 hours today. Patient has already received IV magnesium replacement. We will start folic acid and thiamine supplementation. Monitor for evidence of withdrawal and provide as needed benzodiazepines as indicated. Discharge planning is consulted; patient would benefit from review of community resources available for alcohol and substance abuse. (3) Alcoholic cirrhosis of liver without ascites Is this a current diagnosis for this admission?: Yes Plan: LFTs are acceptable. No evidence of fulminant failure at this time. Alcohol cessation strongly encouraged. (4) High anion gap metabolic acidosis Is this a current diagnosis for this admission?: Yes Plan: Resolved. Likely secondary to alcohol intoxication with SIRS (r/t acute intoxication w/ environmental exposure). (5) Hypertension Qualifiers: Hypertension type: essential hypertension Qualified Code(s): I10 - Essential (primary) hypertension Is this a current diagnosis for this admission?: Yes Plan: Resume home dose Atenolol. IV hydralazing as needed for blood pressure control. Cardiac diet. (6) Tobacco use disorder, severe, dependence Is this a current diagnosis for this admission?: Yes Plan: Smoking cessation encouraged. Nicotine replacement therapies provided. (7) Hypothermia Qualifiers: Encounter type: initial encounter Qualified Code(s): T68.XXXA - Hypothermia, initial encounter Is this a current diagnosis for this admission?: Yes Plan: Resolved. R/t alcohol intoxication with prolonged environmental exposure. (8) Hypoglycemia Is this a current diagnosis for this admission?: Yes Plan: Resolved. Secondary to hypothermia. (9) SIRS (systemic inflammatory response syndrome) Is this a current diagnosis for this admission?: Yes Plan: Resolved. Patient remains afebrile with nml WBC and no indications of acute infectious process at this time. Blood cultures negative at 24 hrs. Antibiotics have been discontinued. (10) Lactic acid acidosis Is this a current diagnosis for this admission?: Yes Plan: Resolved. - Time Time Spent with patient: 25-34 minutes Medications reviewed and adjusted accordingly: Yes Anticipated discharge: Home Within: within 24 hours - pending improved Creatinine.
[2019-12-30] MEDS ORDERED: (PENDING PHARMACY ID) (Atenolol [Tenormin] 50 MG) PO SCH (18:00)
[2019-12-30] MEDS: ATENOLOL 50 MG TABLET PO SCH (22:46)
[2019-12-31] MEDS ORDERED: DIPHENHYDRAMINE HCL 50 MG/ML VIAL IV PRN (00:51)
[2019-12-31 05:04] LABS: HEMATOCRIT 28.8 % (36.0-47.0); HEMOGLOBIN 9.7 g/dL (12.0-15.5); MEAN CORPUSCULAR HEMOGLOBIN 30.6 pg (27.0-33.4); MEAN CORPUSCULAR HGB CONC 33.8 g/dL (32.0-36.0); MEAN CORPUSCULAR VOLUME 91 fl (80-97); PLATELET COUNT 153 10^3/uL (150-450); RED BLOOD COUNT 3.18 10^6/uL (3.72-5.28); RED CELL DISTRIBUTION WIDTH 14.9 % (11.5-14.0); WHITE BLOOD COUNT 3.9 10^3/uL (4.0-10.5)
[2019-12-31 05:28] LABS: ANION GAP 5 (5-19); BLOOD UREA NITROGEN 21 mg/dL (7-20); CALCIUM 8.4 mg/dL (8.4-10.2); CARBON DIOXIDE 25 mmol/L (22-30); CHLORIDE 107 mmol/L (98-107); GLUCOSE 97 mg/dL (75-110); POTASSIUM 5.5 mmol/L (3.6-5.0)
[2019-12-31] MEDS: DIAZEPAM 5 MG TABLET PO SCH ×2 (06:05→13:08)
[2019-12-31] MEDS: HEPARIN SOD (PORCINE) 5,000 UNIT/ML 1 ML VIAL SUBCUT SCH ×2 (06:05→13:08)
[2019-12-31] MEDS: NORMAL SALINE 1000 ML 1,000 ML IV PRN (06:11)
[2019-12-31] MEDS: FOLIC ACID 1 MG TABLET PO SCH (09:25)
[2019-12-31] MEDS: DOCUSATE SODIUM 100 MG CAPSULE PO SCH (09:25)
[2019-12-31] MEDS: THIAMINE HCL 100 MG TABLET PO SCH (09:25)
[2019-12-31] MEDS: ATENOLOL 50 MG TABLET PO SCH (09:25)
[2019-12-31] MEDS: FAMOTIDINE 20 MG TABLET PO SCH (09:25)
[2019-12-31 12:09] VITALS: BP 154/86
--- NOTE | 2019-12-31 15:58 | PDOC DISCHARGE SUMMARY ---
Impression - Admit/DC Date/PCP Admission Date/Primary Care Provider: 12/28/19 20:42 Discharge Date: 12/31/19 - Discharge Diagnosis (1) Alcohol use disorder, severe, dependence Is this a current diagnosis for this admission?: Yes (2) Alcoholic cirrhosis of liver without ascites Is this a current diagnosis for this admission?: Yes (3) High anion gap metabolic acidosis Is this a current diagnosis for this admission?: Yes (4) Hypertension Is this a current diagnosis for this admission?: Yes (5) Hypoglycemia Is this a current diagnosis for this admission?: Yes (6) Hypothermia Is this a current diagnosis for this admission?: Yes (7) Lactic acid acidosis Is this a current diagnosis for this admission?: Yes - Assessment Summary: Patient was admitted from the emergency room on 12/28/2019 with speech difficulty. Patient states that she had trouble finding the right words to express herself. Patient presented to the emergency room she had a blood sugar of 42 her body initial core temperature was 90.8, her pH was 7.11 her lactic acid was elevated at 13.1, her CO2 was 9 and her anion gap was 27 Her temperature corrected quickly to 100.4 and her lactic acid improved to 6.8 with just IV fluid She also had cefepime started in the ER The following day on 12/29/2019 patient's vital signs revealed a temperature of 98, her pulse was 68, blood pressure 141/64, and her O2 sat was 98% on room air pH was normal 7.43 sodium 136, BUN 28, creatinine 1.18 lactic acid level had improved to 2.4 Magnesium was low at 1.2 and this was corrected with magnesium supplements MRI of the head showed no acute findings On 29 December once again her vital signs were all normal her labs were improving tremendously. He had no speech deficit. On 12/31/2019 the day of discharge her white count was 3.9 hemoglobin 9.7 History 136 sodium potassium 5.5 BUN 21 creatinine 1.05 calcium 8.4 magnesium was 1.8 Culture showed no growth in 72 hours MRI of the brain showed no acute infarct or hemorrhage Patient admits prior to coming to the emergency room she had drank some alcohol and possibly "passed out". May have been exposed to the elements prior to coming to the emergency room which would explain her hypoglycemia, hypothermia, and altered labs Patient does not appear to be septic or toxic her cefepime was discontinued She was told to stop drinking alcohol. She did not want a prescription for NicoDerm patches. Was told to follow-up with her primary care doctor next week. Final diagnosis: 1 hypothermia 2 hypotension 3 kidney injury 4 alcohol abuse 5 alcohol cirrhosis 6 high anion gap, 7 lactic acidosis 8 hypoglycemia - Additional Information Resuscitation Status: Full Code Discharge Diet: As Tolerated Discharge Activity: Activity As Tolerated Referrals: BELLA MILLER FNP-C [NO LOCAL MD] - Home Medications: Ascorbic Acid [Vitamin C] 500 mg PO DAILY 05/11/13 Ca Cmb No.1/Vit D3/B-6/FA/B12 [Vitamin D3 1,000 Unit Tablet] 1 tab PO DAILY 05/11/13 Vitamin E [Natural Vitamin E] 400 unit PO DAILY 05/11/13 Thiamine Mononitrate [Vitamin B-1] 1 tab PO DAILY 04/12/15 Atenolol [Tenormin] 50 mg PO BID #120 tablet 01/06/16 Acetaminophen [Tylenol 325 mg Tablet] 650 mg PO Q4HP PRN tablet 12/31/19 Docusate Sodium [Colace 100 mg Capsule] 100 mg PO BID capsule 12/31/19 Mag Hydrox/Al Hydrox/Simeth [Maalox Plus Susp 30 Udcup] 30 ml PO Q6HP PRN udc 12/31/19 Magnesium Hydroxide [Milk of Magnesia 30 ml Udcup] 30 ml PO HSP PRN udc 12/31/19 History of Present Illiness History of Present Illness: LINO PANIAGUA is a 64 year old female Physical Exam Vital Signs: Temp Pulse Resp BP Pulse Ox 97.2 F 59 L 14 154/86 H 99 12/31/19 11:31 12/31/19 11:31 12/31/19 11:31 12/31/19 11:31 12/31/19 10:31 Intake & Output 12/30/19 12/31/19 01/01/20 06:59 06:59 06:59 Intake Total 2892 4055 485 Output Total 2100 Balance 792 4055 485 Weight 63 kg 63.9 kg Results Laboratory Results: WBC 3.9 10^3/uL (4.0-10.5) L 12/31/19 04:13 RBC 3.18 10^6/uL (3.72-5.28) L 12/31/19 04:13 Hgb 9.7 g/dL (12.0-15.5) L 12/31/19 04:13 Hct 28.8 % (36.0-47.0) L 12/31/19 04:13 MCV 91 fl (80-97) 12/31/19 04:13 MCH 30.6 pg (27.0-33.4) 12/31/19 04:13 MCHC 33.8 g/dL (32.0-36.0) 12/31/19 04:13 RDW 14.9 % (11.5-14.0) H 12/31/19 04:13 Plt Count 153 10^3/uL (150-450) 12/31/19 04:13 Lymph % (Auto) 26.9 % (13-45) 12/29/19 05:27 Douglas % (Auto) 12.4 % (3-13) 12/29/19 05:27 Eos % (Auto) 0.2 % (0-6) 12/29/19 05:27 Baso % (Auto) 0.6 % (0-2) 12/29/19 05:27 Absolute Neuts (auto) 3.9 10^3/uL (1.7-8.2) 12/29/19 05:27 Absolute Lymphs (auto) 1.7 10^3/uL (0.5-4.7) 12/29/19 05:27 Absolute Monos (auto) 0.8 10^3/uL (0.1-1.4) 12/29/19 05:27 Absolute Eos (auto) 0.0 10^3/uL (0.0-0.6) 12/29/19 05:27 Absolute Basos (auto) 0.0 10^3/uL (0.0-0.2) 12/29/19 05:27 Seg Neutrophils % 59.9 % (42-78) 12/29/19 05:27 PT 14.8 SEC (11.4-15.4) 12/28/19 16:08 INR 1.15 12/28/19 16:08 APTT 25.4 SEC (23.5-35.8) 12/28/19 16:08 VBG pH 7.43 (7.30-7.42) H 12/29/19 05:27 VBG pCO2 41.9 mmHg (35-63) 12/29/19 05:27 VBG HCO3 27.1 mmol/L (20-32) 12/29/19 05:27 VBG Base Excess 2.5 mmol/L 12/29/19 05:27 Sodium 136.8 mmol/L (137-145) L 12/31/19 04:13 Potassium 5.5 mmol/L (3.6-5.0) H 12/31/19 04:13 Chloride 107 mmol/L (98-107) 12/31/19 04:13 Carbon Dioxide 25 mmol/L (22-30) 12/31/19 04:13 Anion Gap 5 (5-19) 12/31/19 04:13 BUN 21 mg/dL (7-20) H 12/31/19 04:13 Creatinine 1.05 mg/dL (0.52-1.25) 12/31/19 04:13 Est GFR ( Amer) > 60 (>60) 12/31/19 04:13 Est GFR (Non-Af Amer) Cancelled 12/28/19 14:40 Est GFR (MDRD) Non-Af 53 (>60) L 12/31/19 04:13 Glucose 97 mg/dL (75-110) 12/31/19 04:13 POC Glucose 217 mg/dL (70-110) H 12/29/19 10:01 Lactic Acid 2.4 mmol/L (0.7-2.1) H 12/29/19 05:27 Calcium 8.4 mg/dL (8.4-10.2) 12/31/19 04:13 Magnesium 1.8 mg/dL (1.6-2.3) 12/31/19 04:13 Total Bilirubin 0.5 mg/dL (0.2-1.3) 12/28/19 23:28 Direct Bilirubin 0.2 mg/dL (0.0-0.4) 12/28/19 23:28 Neonat Total Bilirubin Not Reportable 12/28/19 23:28 Neonat Direct Bilirubin Not Reportable 12/28/19 23:28 Neonat Indirect Bili Not Reportable 12/28/19 23:28 AST 44 U/L (14-36) H 12/28/19 23:28 ALT 19 U/L (<35) 12/28/19 23:28 Alkaline Phosphatase 86 U/L (38-126) 12/28/19 23:28 Creatine Kinase 106 U/L (30-135) 12/28/19 16:08 CK-MB (CK-2) 2.93 ng/mL (<4.55) 12/28/19 16:08 Troponin I < 0.012 ng/mL 12/28/19 16:08 Total Protein 7.1 g/dL (6.3-8.2) 12/28/19 23:28 Albumin 3.8 g/dL (3.5-5.0) 12/28/19 23:28 Triglycerides 114 mg/dL (<150) 12/29/19 05:27 Cholesterol 154.08 mg/dL (0-200) 12/29/19 05:27 LDL Cholesterol Direct 73 mg/dL (<100) 12/29/19 05:27 VLDL Cholesterol 22.8 mg/dL (10-31) 12/29/19 05:27 HDL Cholesterol 69 mg/dL (>40) 12/29/19 05:27 EGFR Cancelled 12/28/19 14:40 TSH 0.64 uIU/mL (0.47-4.68) 12/29/19 05:27 Free T3 pg/mL 2.42 pg/mL (2.77-5.27) L 12/28/19 23:28 Urine Color YELLOW 12/28/19 15:05 Urine Appearance CLEAR 12/28/19 15:05 Urine pH 5.0 (5.0-9.0) 12/28/19 15:05 Ur Specific [place] 1.006 12/28/19 15:05 Urine Protein NEGATIVE mg/dL (NEGATIVE) 12/28/19 15:05 Urine Glucose (UA) 50 mg/dL (NEGATIVE) H 12/28/19 15:05 Urine Ketones TRACE mg/dL (NEGATIVE) H 12/28/19 15:05 Urine Blood MODERATE (NEGATIVE) H 12/28/19 15:05 Urine Nitrite (Reflex) NEGATIVE (NEGATIVE) 12/28/19 15:05 Urine Bilirubin NEGATIVE (NEGATIVE) 12/28/19 15:05 Urine Urobilinogen NEGATIVE mg/dL (<2.0) 12/28/19 15:05 Leukocyte Esterase Rfl NEGATIVE (NEGATIVE) 12/28/19 15:05 Urine RBC (Auto) 1 /HPF 12/28/19 15:05 Urine Bacteria (Auto) TRACE /HPF 12/28/19 15:05 Urine WBC (Reflex) < 1 /HPF 12/28/19 15:05 Squamous Epi Cells Auto 1 /HPF 12/28/19 15:05 Urine Mucus (Auto) RARE /LPF 12/28/19 15:05 Urine Ascorbic Acid NEGATIVE (NEGATIVE) 12/28/19 15:05 Salicylates < 1.0 mg/dL (2.0-20.0) L 12/28/19 16:08 Acetaminophen < 10 ug/mL (10-30) L 12/28/19 16:08 12/28/19 12/28/19 14:40 16:08 CK-MB (CK-2) Cancelled 2.93 Troponin I Cancelled < 0.012 Impressions: Chest X-Ray 12/28/19 14:54 IMPRESSION: No evidence of acute cardiopulmonary process. Head CT 12/28/19 14:54 IMPRESSION: No evidence of large vascular territory infarct or intracranial hemorrhage. Mild chronic changes of atrophy and microvascular ischemia. EVIDENCE OF ACUTE STROKE: NO. Pertinent positive or negative findings of the imaging study reported as a CRITICAL EXAM to Dr. Bhatia at15:48 on 12/28/2019. Category of Critical Exam: Negative code stroke Head MRI 12/29/19 00:00 IMPRESSION: Chronic white matter disease. No acute findings EVIDENCE OF ACUTE STROKE: NO. Stroke Is this a Stroke Patient?: No Acute Heart Failure - Is this a Heart Failure Patient?: No
== END 2019-12-31 13:00 | disposition home or self-care (01) | DRG 433 ==
LOC: ER 14:33 → EH 20:42 → 3W 22:29
PROVIDERS: ADMIT Emergency Medicine; ATTEND Registered Nurse
DX: K70.30 Alcoholic cirrhosis of liver without ascites (principal); E87.2 Acidosis; N17.9 Acute kidney failure, unspecified; I10 Essential (primary) hypertension; E16.2 Hypoglycemia, unspecified; F10.220 Alcohol dependence with intoxication, uncomplicated; T68.XXXA Hypothermia, initial encounter; E83.42 Hypomagnesemia; I95.9 Hypotension, unspecified; E78.5 Hyperlipidemia, unspecified; M10.9 Gout, unspecified; E78.00 Pure hypercholesterolemia, unspecified; F17.210 Nicotine dependence, cigarettes, uncomplicated; I44.0 Atrioventricular block, first degree; Z79.899 Other long term (current) drug therapy; Z83.3 Family history of diabetes mellitus; Z82.49 Family history of ischemic heart disease and other diseases of the circulatory system; Z80.9 Family history of malignant neoplasm, unspecified
CPT/HCPCS: 36415; 70450; 70551; 71045; 80048; 80053; 80061; 80307; 81001; 82550; 82553; 82803; 82962; 83605; 83735; 84443; 84481; 84484; 85025; 85027; 85610; 85730; 87040; 87070; 93005; 93010; 96361; 96365; 96375; 99291; J0692; J1644; J3475; J3490; J7030; J7060; J7120